=== PATIENT | male | born 2000 | race Caucasian/White ===

== ENCOUNTER 2024-09-02 13:36 | Emergency (ER) | payer OTHER ==
[2024-09-02] MEDS ORDERED: LIDO 2%/EPI 1:200000 PRESRVFRE (20 ML SDVIAL) ONE (13:56)
[2024-09-02 13:57] VITALS: BP 124/87; PULSE 98; RESP 20; TEMP 98.4; BMI 26.6
[2024-09-02] MEDS ORDERED: DIPHTH,PERTUSS(ACELL),TET 0.5 ML DISP.SYRIN IM ONE (14:17)
[2024-09-02] MEDS: DIPHTH,PERTUSS(ACELL),TET 0.5 ML DISP.SYRIN IM ONE (14:55)
== END 2024-09-02 16:03 | disposition home or self-care (01) ==
LOC: FER 13:36
PROC: 0HQFXZZ Repair Right Hand Skin, External Approach (ICD-10-PCS; principal; 2024-09-02)
PROC: 3E0234Z Introduction of Serum, Toxoid and Vaccine into Muscle, Percutaneous Approach (ICD-10-PCS; 2024-09-02)
DX: S61.210A Laceration without foreign body of right index finger without damage to nail, initial encounter (principal); Z23 Encounter for immunization; W26.0XXA Contact with knife, initial encounter; Y99.0 Civilian activity done for income or pay
CPT/HCPCS: 73140-TC-RT-FY; 90715; 99284-25